=== PATIENT | male | born 1925 | race Caucasian/White ===

== ENCOUNTER 2016-07-09 15:01 | Emergency (ER) | payer OTHER, BC ==
[~2016-07-09] VITALS: Ht 170.2 cm; Wt 92.2 kg
[~2016-07-09 15:01] MED LIST: AMLODIPINE BESY10 MG PO; ATARAX10 MG PO; CATAPRES0.1 MG PO; CYANOCOBAL1000 MCG/2 IM; DESOXIMETASONE15 G1 TP; DIOVAN80 MG PO; DIPHENOXYLATE-1 EAC1; FLOMAX0.4 MG PO; FUROSEMIDE40 MG; HYDROCODON-ACE1 EAC7 PO; INDOCIN25 MG PO; KLOR-CON M1010 MEQ; NORVASC10 MG PO; PREDNISONE10 M2 PO; PREDNISONE10 MG; PREDNISONE10 MG PO; PREDNISONE5 MG PO; PYRIDOSTIGMINE60 MG PO; ROBAXIN750 MG PO; ROXICODONE5 MG PO; TIZANIDINE HCL4 MG PO; TRAMADOL HCL50 MG PO; VITAMIN D2000 UNIT PO; [UNRECOGNIZED DRUG - OTHER]
[2016-07-09] MEDS ORDERED: PERCOCET 5/31 TABLET PO (16:11)
[2016-07-09 16:29] VITALS: BP 134/74
[2016-07-10] MEDS ORDERED: TYLENOL WITH C1 EACH PO (18:05)
[2016-07-10] MEDS ORDERED: IBUPROFEN800 MG PO (18:05)
[2016-07-10] MEDS ORDERED: TIZANIDINE HCL4 MG PO (18:09)
== END 2016-07-09 16:34 | disposition home or self-care (01) ==
LOC: EME 15:01
DX: M79.651 Pain in right thigh (principal); I10 Essential (primary) hypertension; Z85.46 Personal history of malignant neoplasm of prostate
CPT/HCPCS: 73502; 93971; 99281; 99285

== ENCOUNTER 2016-07-10 15:40 | Inpatient (IN) | payer OTHER, BC ==
[~2016-07-10] VITALS: Ht 170.2 cm; Wt 99.5 kg
[~2016-07-10 15:40] MED LIST changes: +PERCOCET 5/31 TABLET PO
[2016-07-10 16:30] LABS: ADD MIUA? YES; BILIRUBIN NEGATIVE; BLOOD MODERATE; COLOR AMBER ((YELLOW)); GLUCOSE (STRIP) NEGATIVE; KETONES NEGATIVE; LEUKOCYTES MODERATE; NITRITE NEGATIVE; PROTEIN (STRIP) 100; SPECIFIC GRAVITY 1.016 (1.000-1.030); UROBILINOGEN 0.2 MG/DL (0.2-1.0)
[2016-07-10 16:40] LABS: HEMATOCRIT 33.5 % (38.0-50.0); MCH 32.5 PG (29.0-34.0); MCHC 30.7 G/DL (30.0-36.0); MCV 105.7 FL (86-99); MEAN PLAT.VOLUME 12.7 uM^3 (9.0-12.4); PLATELET COUNT 91 K/uL (156-360); RBC DIS.WIDTH-CV 14.3 % (11.8-14.6); RED BLOOD COUNT 3.17 M/uL (4.00-5.50); WHITE BLOOD COUNT 15.9 K/uL (4.1-10.2)
[2016-07-10 16:48] LABS: CHLORIDE 110 mEq/L (99-109); SODIUM 142 mEq/L (136-147)
[2016-07-10 16:50] LABS: GLUCOSE 141 mg/dL (70-99)
[2016-07-10 16:51] LABS: ANION GAP 10 MEQ/L (2-14)
[2016-07-10 16:54] LABS: GFR ESTIMATE (CALCULATED) 13 mL/min/
[2016-07-10 16:55] LABS: UREA NITROGEN (BUN) 75 mg/dL (9-23)
[2016-07-10 17:00] LABS: AMORPHOUS URATES CRYSTALS 2+; BACTERIA 2+ /HPF; EPITHELIAL CELLS RARE /HPF; MUCUS NONE SEEN /LPF; RED BLOOD CELLS 0-5 /HPF (0-5); UCUL ADDED? YES
[2016-07-10 17:11] LABS: POTASSIUM 6.3 mEq/L (3.7-5.4)
[2016-07-10 17:47] LABS: EOSINOPHIL (%) 0 % (0-5); IMMATURE GRANULOCYTE (%) 0.8 % (0.0-0.7); IMMATURE GRANULOCYTE COUNT 0.1 K/uL; INSTRUMENT ABS NEUTROPHIL CT 13.9 K/uL; LYMPHOCYTE COUNT 0.2 K/uL (1.0-2.8); MONOCYTE (%) 10.6 % (3-12); MONOCYTE COUNT 1.7 K/uL (0-0.8); NEUTROPHIL COUNT 13.9 K/uL (1.8-6.4)
[2016-07-10 17:49] LABS: PLAT.SUFFICIENCY DECREASED
[2016-07-10] MEDS ORDERED: IBUPROFEN800 MG PO (18:05)
[2016-07-10] MEDS ORDERED: TYLENOL WITH C1 EACH PO (18:05)
[2016-07-10] MEDS ORDERED: TIZANIDINE HCL4 MG PO (18:09)
[2016-07-10 18:18] LABS: TROP-I INTERPRETATION NEGATIVE; TROPONIN-I 0.24 ng/mL (0.0-0.30)
[2016-07-10 19:42] VITALS: BP 135/63
[2016-07-10 22:18] LABS: POTASSIUM 5.4 MEQ/L (3.7-5.4)
[2016-07-10 23:20] LABS: CHLORIDE 110 mEq/L (99-109); SODIUM 142 mEq/L (136-147)
[2016-07-10 23:22] LABS: GLUCOSE 134 mg/dL (70-99)
[2016-07-10 23:24] LABS: ANION GAP 11 MEQ/L (2-14)
[2016-07-10 23:26] LABS: GFR ESTIMATE (CALCULATED) 13 mL/min/
[2016-07-10 23:27] LABS: UREA NITROGEN (BUN) 77 mg/dL (9-23)
[2016-07-11] VITALS (7 sets, daily range): BP systolic 116–177; BP diastolic 58–81
[2016-07-11 07:09] LABS: HEMATOCRIT 30.9 % (38.0-50.0); MCH 33.1 PG (29.0-34.0); MCHC 31.1 G/DL (30.0-36.0); MCV 106.6 FL (86-99); PLATELET COUNT 93 K/uL (156-360); RBC DIS.WIDTH-CV 14.3 % (11.8-14.6); RBC DIS.WIDTH-SD 56.3 % (39-53); WHITE BLOOD COUNT 11.6 K/uL (4.1-10.2)
[2016-07-11 07:33] LABS: ALKALINE PHOSPHATASE 63 IU/L (3-129); ANION GAP 11 MEQ/L (2-14); CHLORIDE 111 MEQ/L (99-109); GFR ESTIMATE (CALCULATED) 13 mL/min/; GLUCOSE 115 mg/dL (70-99); POTASSIUM 5.6 MEQ/L (3.7-5.4); SAMPLE HEMOLYSIS CHECK 0; SAMPLE ICTERIC CHECK 0; SAMPLE LIPEMIA CHECK 0; SODIUM 143 MEQ/L (136-147); TOTAL BILIRUBIN 0.4 MG/DL (0.0-1.0); UREA NITROGEN (BUN) 74 mg/dL (9-23)
[2016-07-11 08:26] LABS: EOSINOPHIL (%) 0 % (0-5); IMMATURE GRANULOCYTE (%) 1.3 % (0.0-0.7); IMMATURE GRANULOCYTE COUNT 0.2 K/uL; INSTRUMENT ABS NEUTROPHIL CT 9.1 K/uL; LYMPHOCYTE COUNT 0.4 K/uL (1.0-2.8); MONOCYTE (%) 16.6 % (3-12); MONOCYTE COUNT 1.9 K/uL (0-0.8); NEUTROPHIL (%) 78.5 % (45-76); NEUTROPHIL COUNT 9.1 K/uL (1.8-6.4)
[2016-07-12 04:00] VITALS: BP 171/84
[2016-07-12 06:35] LABS: EOSINOPHIL (%) 0 % (0-5); HEMATOCRIT 31.7 % (38.0-50.0); IMMATURE GRANULOCYTE (%) 4.3 % (0.0-0.7); IMMATURE GRANULOCYTE COUNT 0.4 K/uL; INSTRUMENT ABS NEUTROPHIL CT 7.7 K/uL; LYMPHOCYTE COUNT 0.6 K/uL (1.0-2.8); MCH 32.4 PG (29.0-34.0); MCHC 30.6 G/DL (30.0-36.0); MEAN PLAT.VOLUME 11.8 uM^3 (9.0-12.4); MONOCYTE (%) 14.5 % (3-12); MONOCYTE COUNT 1.5 K/uL (0-0.8); NEUTROPHIL COUNT 7.7 K/uL (1.8-6.4); PLATELET COUNT 108 K/uL (156-360); RBC DIS.WIDTH-CV 14.4 % (11.8-14.6); RBC DIS.WIDTH-SD 55.8 % (39-53); RED BLOOD COUNT 2.99 M/uL (4.00-5.50); WHITE BLOOD COUNT 10.2 K/uL (4.1-10.2)
[2016-07-12 06:58] LABS: ANION GAP 11 MEQ/L (2-14); CHLORIDE 112 MEQ/L (99-109); GFR ESTIMATE (CALCULATED) 14 mL/min/; GLUCOSE 101 mg/dL (70-99); POTASSIUM 5.3 MEQ/L (3.7-5.4); SAMPLE HEMOLYSIS CHECK 0; SAMPLE ICTERIC CHECK 0; SAMPLE LIPEMIA CHECK 0; SODIUM 144 MEQ/L (136-147); UREA NITROGEN (BUN) 79 mg/dL (9-23); URIC ACID 9.3 mg/dL (3.1-9.2)
[2016-07-12 07:45] VITALS: BP 171/77
[2016-07-12 11:39] VITALS: BP 103/55
[2016-07-12 15:32] VITALS: BP 161/75
[2016-07-12 19:15] VITALS: BP 158/82
[2016-07-13 05:09] VITALS: BP 165/78
[2016-07-13 06:21] LABS: HEMATOCRIT 30.3 % (38.0-50.0); MCV 103.1 FL (86-99); MEAN PLAT.VOLUME 11.4 uM^3 (9.0-12.4); PLATELET COUNT 117 K/uL (156-360); RBC DIS.WIDTH-CV 14.5 % (11.8-14.6); RBC DIS.WIDTH-SD 54.3 % (39-53); RED BLOOD COUNT 2.94 M/uL (4.00-5.50); WHITE BLOOD COUNT 7.2 K/uL (4.1-10.2)
[2016-07-13 06:40] LABS: ANION GAP 12 MEQ/L (2-14); CHLORIDE 110 MEQ/L (99-109); GFR ESTIMATE (CALCULATED) 15 mL/min/; GLUCOSE 99 mg/dL (70-99); POTASSIUM 4.8 MEQ/L (3.7-5.4); SAMPLE HEMOLYSIS CHECK 0; SAMPLE ICTERIC CHECK 0; SAMPLE LIPEMIA CHECK 0; SODIUM 143 MEQ/L (136-147); UREA NITROGEN (BUN) 81 mg/dL (9-23)
[2016-07-13 07:33] LABS: ANISOCYTOSIS 2+; ATYPICAL LYMPHOCYTE 0.9 %; BAND NEUTROPHILS 14.8 % (0-8.0); EOSINOPHIL ABS CT 0; INSTRUMENT ABS NEUTROPHIL CT 5.1 K/uL; LYMPHOCYTES 6.9 % (15.0-45.0); MACROCYTES 2+; MYELOCYTES 1.7 %; PLAT.SUFFICIENCY DECREASED; SEG.NEUTROPHILS 68.7 % (46.0-76.0)
[2016-07-13 08:13] VITALS: BP 168/70
[2016-07-13 11:34] VITALS: BP 136/62
[2016-07-13 15:47] VITALS: BP 162/73
[2016-07-13 19:36] VITALS: BP 148/66
[2016-07-13 23:10] VITALS: BP 168/74
[2016-07-14] VITALS (7 sets, daily range): BP systolic 102–173; BP diastolic 50–78
[2016-07-14 07:04] LABS: HEMATOCRIT 28.8 % (38.0-50.0); MCH 32.9 PG (29.0-34.0); MCHC 31.9 G/DL (30.0-36.0); MCV 102.9 FL (86-99); MEAN PLAT.VOLUME 11.5 uM^3 (9.0-12.4); PLATELET COUNT 125 K/uL (156-360); RBC DIS.WIDTH-CV 14.3 % (11.8-14.6); RBC DIS.WIDTH-SD 54.1 % (39-53); WHITE BLOOD COUNT 6.3 K/uL (4.1-10.2)
[2016-07-14 07:24] LABS: ANION GAP 12 MEQ/L (2-14); CHLORIDE 112 MEQ/L (99-109); GFR ESTIMATE (CALCULATED) 16 mL/min/; GLUCOSE 94 mg/dL (70-99); POTASSIUM 4.6 MEQ/L (3.7-5.4); SAMPLE HEMOLYSIS CHECK 0; SAMPLE ICTERIC CHECK 0; SAMPLE LIPEMIA CHECK 0; SODIUM 142 MEQ/L (136-147); UREA NITROGEN (BUN) 83 mg/dL (9-23)
[2016-07-14 08:00] LABS: ABS NEUTROPHIL COUNT 5.4; ANISOCYTOSIS 2+; BAND NEUTROPHILS 8.8 % (0-8.0); EOSINOPHIL ABS CT 0; HYPOCHROMASIA 2+; INSTRUMENT ABS NEUTROPHIL CT 4.2 K/uL; LYMPHOCYTES 0.9 % (15.0-45.0); MACROCYTES 2+; METAMYELOCYTES 5.2 %; MYELOCYTES 4.4 %; PLAT.SUFFICIENCY DECREASED; POLYCHROMASIA 1+; SEG.NEUTROPHILS 77.2 % (46.0-76.0)
[2016-07-15 03:00] VITALS: BP 143/66
[2016-07-15 06:41] LABS: HEMATOCRIT 28.7 % (38.0-50.0); MCH 33.3 PG (29.0-34.0); MCHC 32.1 G/DL (30.0-36.0); MEAN PLAT.VOLUME 10.9 uM^3 (9.0-12.4); PLATELET COUNT 153 K/uL (156-360); RBC DIS.WIDTH-CV 14.6 % (11.8-14.6); RBC DIS.WIDTH-SD 55.1 % (39-53); RED BLOOD COUNT 2.76 M/uL (4.00-5.50); WHITE BLOOD COUNT 5.4 K/uL (4.1-10.2)
[2016-07-15 07:04] LABS: ANION GAP 11 MEQ/L (2-14); CHLORIDE 113 MEQ/L (99-109); GFR ESTIMATE (CALCULATED) 16 mL/min/; GLUCOSE 96 mg/dL (70-99); MAGNESIUM 1.8 mg/dl (1.3-2.7); POTASSIUM 4.8 MEQ/L (3.7-5.4); SAMPLE HEMOLYSIS CHECK 0; SAMPLE ICTERIC CHECK 0; SAMPLE LIPEMIA CHECK 0; SODIUM 142 MEQ/L (136-147); UREA NITROGEN (BUN) 83 mg/dL (9-23)
[2016-07-15 07:21] LABS: ABS NEUTROPHIL COUNT 3.6; ANISOCYTOSIS 2+; BAND NEUTROPHILS 8.7 % (0-8.0); EOSINOPHIL ABS CT 0; INSTRUMENT ABS NEUTROPHIL CT 2.9 K/uL; LYMPHOCYTES 9.6 % (15.0-45.0); MACROCYTES 2+; METAMYELOCYTES 1.7 %; MYELOCYTES 16.5 %; PLAT.SUFFICIENCY ADEQUATE; SEG.NEUTROPHILS 58.3 % (46.0-76.0)
[2016-07-15 07:42] VITALS: BP 145/65
[2016-07-15 11:58] VITALS: BP 104/53
[2016-07-15 13:40] LABS: UR CREATININE CONCENTRATION 90.7 MG/DL
[2016-07-15 15:39] VITALS: BP 140/65
[2016-07-15 19:20] VITALS: BP 134/63
[2016-07-15 23:53] VITALS: BP 179/76
[2016-07-16 03:35] VITALS: BP 161/74
[2016-07-16 07:54] LABS: ANION GAP 10 MEQ/L (2-14); CHLORIDE 113 MEQ/L (99-109); GFR ESTIMATE (CALCULATED) 17 mL/min/; GLUCOSE 91 mg/dL (70-99); POTASSIUM 4.8 MEQ/L (3.7-5.4); SAMPLE HEMOLYSIS CHECK 0; SAMPLE ICTERIC CHECK 0; SAMPLE LIPEMIA CHECK 0; SODIUM 143 MEQ/L (136-147); UREA NITROGEN (BUN) 81 mg/dL (9-23)
[2016-07-16 08:02] VITALS: BP 129/62
[2016-07-16 12:11] VITALS: BP 128/60
[2016-07-16 15:59] VITALS: BP 118/57
[2016-07-16 20:03] VITALS: BP 145/66
[2016-07-17 00:18] VITALS: BP 174/84
[2016-07-17 04:39] VITALS: BP 150/75
[2016-07-17 07:00] VITALS: BP 170/73
[2016-07-17 07:57] LABS: IRON 98 MCG/DL (35-150)
[2016-07-17 11:36] VITALS: BP 142/67
[2016-07-17 11:59] LABS: ANION GAP 9 MEQ/L (2-14); CHLORIDE 113 MEQ/L (99-109); GFR ESTIMATE (CALCULATED) 20 mL/min/; GLUCOSE 110 mg/dL (70-99); POTASSIUM 4.7 MEQ/L (3.7-5.4); SAMPLE HEMOLYSIS CHECK 0; SAMPLE ICTERIC CHECK 0; SAMPLE LIPEMIA CHECK 0; SODIUM 141 MEQ/L (136-147); UREA NITROGEN (BUN) 72 mg/dL (9-23)
[2016-07-17 17:07] VITALS: BP 136/62
[2016-07-17 19:35] VITALS: BP 173/73
[2016-07-18 00:30] VITALS: BP 163/72
[2016-07-18 04:23] VITALS: BP 163/76
[2016-07-18 08:15] VITALS: BP 143/68
[2016-07-18 09:29] LABS: ANION GAP 9 MEQ/L (2-14); CHLORIDE 115 MEQ/L (99-109); POTASSIUM 4.9 MEQ/L (3.7-5.4); SAMPLE HEMOLYSIS CHECK 0; SAMPLE ICTERIC CHECK 0; SAMPLE LIPEMIA CHECK 0; SODIUM 144 MEQ/L (136-147)
[2016-07-18 09:35] LABS: GFR ESTIMATE (CALCULATED) 21 mL/min/; GLUCOSE 87 mg/dL (70-99); UREA NITROGEN (BUN) 65 mg/dL (9-23)
[2016-07-18 11:01] VITALS: BP 146/55
[2016-07-18 15:27] VITALS: BP 115/51
[2016-07-18] MEDS ORDERED: FUROSEMIDE20 MG PO (18:46)
[2016-07-18] MEDS ORDERED: APRESOLINE10 MG PO (18:46)
[2016-07-18] MEDS ORDERED: OYSTER SHELL 51 EACH PO (18:46)
== END 2016-07-18 20:10 | disposition home or self-care (01) | DRG 872 ==
LOC: EME 15:40 → EDOF 18:00 → 4EAST 18:00
PROVIDERS: Emergency Medicine; Internal Medicine; Internal Medicine Nephrology
DX: A41.51 Sepsis due to Escherichia coli [E. coli] (principal); N39.0 Urinary tract infection, site not specified; E87.5 Hyperkalemia; N17.9 Acute kidney failure, unspecified; T39.315A Adverse effect of propionic acid derivatives, initial encounter; T46.5X5A Adverse effect of other antihypertensive drugs, initial encounter; I12.9 Hypertensive chronic kidney disease with stage 1 through stage 4 chronic kidney disease, or unspecified chronic kidney disease; N18.3 Chronic kidney disease, stage 3 (moderate); R60.0 Localized edema; E78.5 Hyperlipidemia, unspecified; E53.8 Deficiency of other specified B group vitamins; E55.9 Vitamin D deficiency, unspecified; D69.6 Thrombocytopenia, unspecified; D64.9 Anemia, unspecified; G70.00 Myasthenia gravis without (acute) exacerbation; M19.90 Unspecified osteoarthritis, unspecified site; Z85.46 Personal history of malignant neoplasm of prostate
CPT/HCPCS: 71010; 73502; 74176; 76770; 80048; 80048 91; 80053; 81003; 82570; 83540; 83605; 83735; 84100; 84132 91; 84156; 84466; 84484; 84550; 85025; 87040; 87077; 87086 GA; 87186; 87801; 89190; 93005; 93971; 99281; 99285; J0610; J1644; J1940; J1956; J7030; J7050; J7512

== ENCOUNTER 2016-09-23 15:55 | Emergency (ER) | payer OTHER, BC ==
[~2016-09-23] VITALS: Ht 170.2 cm; Wt 87.0 kg
[~2016-09-23 15:55] MED LIST changes: +APRESOLINE10 MG PO; +FUROSEMIDE20 MG PO; +IBUPROFEN800 MG PO; +OYSTER SHELL 51 EACH PO; +TYLENOL WITH C1 EACH PO
[2016-09-23 16:37] LABS: HEMATOCRIT 33.1 % (38.0-50.0); MCH 32.1 PG (29.0-34.0); MCHC 31.7 G/DL (30.0-36.0); MCV 101.2 FL (86-99); MEAN PLAT.VOLUME 11.1 uM^3 (9.0-12.4); PLATELET COUNT 108 K/uL (156-360); RBC DIS.WIDTH-CV 13.6 % (11.8-14.6); RBC DIS.WIDTH-SD 50.1 % (39-53); RED BLOOD COUNT 3.27 M/uL (4.00-5.50); WHITE BLOOD COUNT 9.7 K/uL (4.1-10.2)
[2016-09-23 16:45] LABS: ADD MIUA? YES; BILIRUBIN NEGATIVE; BLOOD LARGE; GLUCOSE (STRIP) NEGATIVE; KETONES NEGATIVE; LEUKOCYTES NEGATIVE; NITRITE NEGATIVE; PROTEIN (STRIP) 100; SPECIFIC GRAVITY 1.009 (1.000-1.030); UROBILINOGEN 0.2 MG/DL (0.2-1.0)
[2016-09-23 16:46] LABS: CHLORIDE 107 mEq/L (99-109); POTASSIUM 4.8 mEq/L (3.7-5.4); SODIUM 146 mEq/L (136-147)
[2016-09-23 16:48] LABS: GLUCOSE 137 mg/dL (70-99)
[2016-09-23 16:49] LABS: ANION GAP 15 MEQ/L (2-14)
[2016-09-23 16:52] LABS: GFR ESTIMATE (CALCULATED) 24 mL/min/
[2016-09-23 16:52] LABS: COLOR RED ((YELLOW))
[2016-09-23 16:53] LABS: UREA NITROGEN (BUN) 46 mg/dL (9-23)
[2016-09-23 17:11] LABS: RED BLOOD CELLS TNTC /HPF (0-5); UCUL ADDED? YES
[2016-09-23 19:06] VITALS: BP 192/77
== END 2016-09-23 19:07 | disposition home or self-care (01) ==
LOC: EME 15:55
DX: R31.9 Hematuria, unspecified (principal); I10 Essential (primary) hypertension; Z90.49 Acquired absence of other specified parts of digestive tract
CPT/HCPCS: 80048; 81003; 85027; 87086; 99281; 99284